=== PATIENT | female | born 1945 | race Caucasian/White ===

== ENCOUNTER 2019-08-31 08:52 | Outpatient (CLI) | payer MEDICARE, BC, SELFPAY ==
--- NOTE | ~2019-08-31 | US_ITS ---
EXAMINATION: US abdomen complete DATE: 08/31/2019 10:06 INDICATION: Elevated liver enzymes TECHNIQUE: Multiple grayscale and Doppler ultrasound images of the abdomen were obtained. COMPARISON: 09/17/2017 FINDINGS: Bowel gas obscures visualization of the pancreas. The liver is normal with normal echogenic ity and echotexture. No surface nodularity. Normal hepatopetal flow in the main portal vein. The gall bladder is surgically absent. The normal common bile duct measures 6 mm. There was no sonographic Mur phy sign. The visualized portions of the aorta and inferior vena cava are normal. The right kidney measures 9.2 x 4.4 x 4.5 cm. The left kidney measures 11.1 x 3.4 x 5.3 cm. The kidne ys demonstrate normal parenchymal echogenicity. There is no hydronephrosis. The spleen is normal in a ppearance and measures 10.5 cm. IMPRESSION: 1. No sonographic correlate for the patient's symptoms. Reviewed, dictated and finalized at location A.
== END 2019-08-31 08:53 | disposition home or self-care (01) ==
LOC: ANHIMG 08:59
PROVIDERS: PCP Internal Medicine; Visit Provider Internal Medicine
DX: R74.8 Abnormal levels of other serum enzymes (principal)
CPT/HCPCS: 76700

== ENCOUNTER 2020-02-22 11:58 | Outpatient (CLI) | payer MEDICARE, BC, SELFPAY ==
--- NOTE | ~2020-02-22 | NM_ITS ---
EXAMINATION: NM parathyroid imaging w spect DATE: 02/23/2020 07:54 INDICATION: Endocrine disorder, unspecified elevated calcium. TECHNIQUE: 19.063 mCi Tc99m sestamibi was administered intravenously. Anterior images of the neck wer e obtained immediately and at 2 hours. SPECT images of the neck were obtained. COMPARISON: None. FINDINGS: There is no focus of persistent activity in the area of the thyroid or mediastinum to sugge st parathyroid adenoma. IMPRESSION: 1. No evidence of a parathyroid adenoma. Reviewed, dictated and finalized at location A. [employer] POWER UNIT TENDER
== END 2020-02-22 11:59 | disposition home or self-care (01) ==
PROVIDERS: PCP Internal Medicine; Visit Provider Internal Medicine
DX: E34.9 Endocrine disorder, unspecified (principal)
CPT/HCPCS: 78071; A9500

== ENCOUNTER 2020-03-13 13:30 | Outpatient (CLI) | payer MEDICARE, BC, SELFPAY ==
--- NOTE | ~2020-03-13 | US_ITS ---
EXAMINATION: US thyroid EXAM DATE: 03/13/2020 13:59 INDICATION: E34.9 - Endocrine disorder, unspecified. Elevated parathyroid hormone and calcium. TECHNIQUE: Multiple grayscale and Doppler images of the thyroid were obtained (by a technologist who performed the scan) and subsequently reviewed. Individual nodules and recommendations may be reporte d in accordance with TI-RADS system as designated by the 2017 ACR White Paper TI-RADS committee. Comp maryson is made to prior examination from 08/20/2016. FINDINGS: The right thyroid lobe measures 4.9 x 1.7 x 1.3 cm, mildly enlarged. The left thyroid lobe measures 4 .9 x 1.4 x 1.8 cm, mildly enlarged. There are scattered thyroid nodules. There is a hypervascular nodule in the right thyroid lobe measuring 6 x 7 x 5 mm, solid (2 points), h ypoechoic (2 points), wider than tall, smooth margin, without echogenic foci, category TR4 for this n odule. Scattered other smaller thyroid nodules bilaterally. IMPRESSION: 1. Multinodular goiter. Optional one-year follow-up thyroid ultrasound. 2. Best candidate for possible parathyroid adenoma in the lateral midpole of the right thyroid lobe. Reviewed, dictated and finalized at location A. RAMMING SPECIALIST IMPRESSION: 1. Multinodular goiter. Optional one-year follow-up thyroid ultrasound. 2. Best candidate for possible parathyroid adenoma in the lateral midpole of t he right thyroid lobe.
== END 2020-03-13 13:31 | disposition home or self-care (01) ==
PROVIDERS: PCP Internal Medicine; Visit Provider Internal Medicine
DX: E34.9 Endocrine disorder, unspecified (principal); E04.2 Nontoxic multinodular goiter
CPT/HCPCS: 76536

== ENCOUNTER 2020-08-01 10:20 | Outpatient (CLI) | payer MEDICARE, BC, SELFPAY ==
[2020-08-01 11:03] LABS: INR 0.9; Prothrombin Time 12.9 Seconds (11.1-14.7)
== END 2020-08-01 10:21 | disposition home or self-care (01) ==
PROVIDERS: Anesthesiology; PCP Internal Medicine; Visit Provider Otolaryngology
DX: N28.9 Disorder of kidney and ureter, unspecified (principal); Z01.818 Encounter for other preprocedural examination
CPT/HCPCS: 36415; 85610; 85730

== ENCOUNTER → 2020-08-04 03:59 | Outpatient (CLI) | payer MEDICARE, BC, SELFPAY ==
[2020-08-04 19:46] LABS: SARS-CoV-2 RNA PCR Negative
== END ==
PROVIDERS: PCP Internal Medicine; Visit Provider Otolaryngology
DX: Z01.812 Encounter for preprocedural laboratory examination (principal); Z20.822 Contact with and (suspected) exposure to COVID-19
CPT/HCPCS: C9803; U0003; U0005

== ENCOUNTER 2020-08-07 01:49 | Day surgery (SDC) | payer MEDICARE, BC, SELFPAY ==
[2020-07-26 10:01] VITALS: BMI 28.3
--- NOTE | 2020-08-02 13:51 | PM.HPGS ---
History of Present Illness History of Present Illness Consent: Risks, benefits, and alternatives have been discussed and questions answered. Patient agrees to proceed with procedure. 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 Colon cancer screening DM type 2 (diabetes mellitus, type 2) Elevated homocysteine Elevated liver function tests Elevated parathyroid hormone Encounter for Medicare annual wellness exam Encounter for routine adult health examination with abnormal findings GERD (gastroesophageal reflux disease) Hypercalcemia Hyperlipidemia 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 Parathyroid adenoma Skin tag Vitamin D deficiency Family History Family History Father Hypertension Family history of heart disease in male family member before age 55 Cerebrovascular accident Mother Hypertension Family history of malignant neoplasm of breast in first degree relative Cerebrovascular accident Sibling Hypertension Family history of gastrointestinal disorder Other Family history of cardiovascular disease Social History Social History Smoking status: Never smoker Second hand tobacco smoke exposure: No Alcohol intake: never Substance use: never Substance use type: does not use Spiritual care concerns: No Meds Home Medications and Allergies Home Medications Medication Instructions Recorded Confirmed Type coenzyme Q10 100 mg capsule 400 mg PO DAILY 01/27/19 07/26/20 History magnesium 250 mg tablet 500 mg PO DAILY 01/27/19 07/26/20 History mecobalamin (vitamin B12) 1,000 1,000 mcg SUBLINGUAL DAILY 01/27/19 07/26/20 History mcg disintegrating tablet,sublingual omega-3 fatty acids 1,000 mg 2,000 mg PO BID cap 02/18/19 07/26/20 History capsule folic acid 1 mg tablet 1 mg PO DAILY #90 tablet 11/09/19 07/26/20 Rx cholecalciferol (vitamin D3) 25 25 mcg PO DAILY 02/01/20 07/26/20 History mcg (1,000 unit) tablet sitagliptin 100 mg tablet See Rx Instructions .ROUTE 04/02/20 07/26/20 Rx .COMPLEX #90 tablet indapamide 1.25 mg tablet See Rx Instructions .ROUTE 05/09/20 07/26/20 Rx .COMPLEX #90 tablet verapamil 180 mg tablet,extended See Rx Instructions .ROUTE 05/09/20 07/26/20 Rx release .COMPLEX #90 tablet famotidine 40 mg tablet See Rx Instructions .ROUTE 05/22/20 07/26/20 Rx .COMPLEX #90 tablet rosuvastatin 20 mg tablet See Rx Instructions .ROUTE 05/22/20 07/26/20 Rx .COMPLEX #90 tablet Allergies Allergy/AdvReac Type Severity Reaction Status Date / Time HERB Inhibitors Allergy Unknown Cough, Verified 07/26/20 09:55 RETAIN K+ hydralazine Allergy Unknown RASH, Verified 07/26/20 09:55 HANDS/FEET SWELLING Penicillins Allergy Unknown Unknown-POSSIBLE Verified 07/26/20 09:55 RASH Exam Narrative: Exam Narrative: chest clear of membranes themselves straight negative neck negative Assessment and Plan Additional Plan neck exploration parathyroidectomy
[2020-08-07] VITALS (8 sets, daily range): BP systolic 97–136; BP diastolic 53–65; PULSE 66–78; RESP 15–20; TEMP 36–36.4; O2SAT 95–100
--- NOTE | ~2020-08-07 | NM_ITS ---
EXAMINATION: NM parathyroid injection only DATE: 08/07/2020 07:58 INDICATION: Primary hyperparathyroidism. Preoperative assessment TECHNIQUE/FINDINGS/IMPRESSION: 5.0 mCi Tc99m sestamibi was administered by intravenous route for loca lization for subsequent surgery. No images were recorded. See surgical note for further detail. Reviewed, dictated and finalized at location A.
--- NOTE | 2020-08-07 05:44 | WPDHPUPDATE1 ---
History and Physical Update Update Date/Time: 08/07/20 05:44 History and Physical has been reviewed, including an updated exam of the patient. There are NO changes in the patient's condition. Risks, benefits, and alternatives have been discussed and questions answered. Patient agrees to proceed with procedure.
[2020-08-07] MEDS: ACETAMINOPHEN 500 MG TABLET 1000 MG PO (07:32)
[2020-08-07] MEDS: LACTATED RINGERS 1,000 ML 30 ML IV CONT ×2 (07:34→10:00)
[2020-08-07 08:16] LABS: Glucose Point of Care 112 mg/dl (65-105)
--- NOTE | 2020-08-07 08:18 | WPDANESEPP ---
Anes - Eval Pre Procedure Procedure: Operation Date: 08/07/20 09:30 Proposed Procedures p Parathyroid Exploration - Goran Castillo MD Date/Time: 08/07/20 08:18 Pre Op Diagnosis: hypercalcemia Patient Data Age: 74 Gender: F Height: 1.68 m Weight: 76.6 kg Last Vital Signs Temp 36.4 C L 08/07/20 07:30 Pulse 78 08/07/20 07:30 Resp 18 08/07/20 07:30 BP 136/65 08/07/20 07:30 Pulse Ox 98 08/07/20 07:30 Allergies Allergy/AdvReac Type Severity Reaction Status Date / Time HERB Inhibitors Allergy Unknown Cough, Verified 08/07/20 07:58 RETAIN K+ hydralazine Allergy Unknown RASH, Verified 08/07/20 07:58 HANDS/FEET SWELLING Penicillins Allergy Unknown Unknown-POSSIBLE Verified 08/07/20 07:58 RASH Home Medications Medication Instructions Recorded Confirmed Type coenzyme Q10 100 mg capsule 400 mg PO DAILY 01/27/19 08/07/20 History magnesium 250 mg tablet 500 mg PO DAILY 01/27/19 08/07/20 History mecobalamin (vitamin B12) 1,000 1,000 mcg SUBLINGUAL DAILY 01/27/19 08/07/20 History mcg disintegrating tablet,sublingual omega-3 fatty acids 1,000 mg 2,000 mg PO BID cap 02/18/19 08/07/20 History capsule folic acid 1 mg tablet 1 mg PO DAILY #90 tablet 11/09/19 08/07/20 Rx cholecalciferol (vitamin D3) 25 25 mcg PO DAILY 02/01/20 08/07/20 History mcg (1,000 unit) tablet sitagliptin 100 mg tablet See Rx Instructions .ROUTE 04/02/20 08/07/20 Rx .COMPLEX #90 tablet indapamide 1.25 mg tablet See Rx Instructions .ROUTE 05/09/20 08/07/20 Rx .COMPLEX #90 tablet verapamil 180 mg tablet,extended See Rx Instructions .ROUTE 05/09/20 08/07/20 Rx release .COMPLEX #90 tablet famotidine 40 mg tablet See Rx Instructions .ROUTE 05/22/20 08/07/20 Rx .COMPLEX #90 tablet rosuvastatin 20 mg tablet See Rx Instructions .ROUTE 03/16/21 06/01/21 Rx .COMPLEX #90 tablet Laboratory Tests 08/07/20 08:13 POC Capillary Glucose 112 mg/dl H mg/dl (65-105) Patient hx anesthesia problems: none Family hx anesthesia problems: none PMFSH Past Medical History Medical History Abnormal finding of blood chemistry HERB inhibitor intolerance Benign essential hypertension Bilateral cataracts BMI 28.0-28.9,adult BMI 29.0-29.9,adult 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 Colon cancer screening DM type 2 (diabetes mellitus, type 2) Elevated homocysteine Elevated liver function tests Elevated parathyroid hormone Encounter for Medicare annual wellness exam Encounter for routine adult health examination with abnormal findings GERD (gastroesophageal reflux disease) Hypercalcemia Hyperlipidemia On care home drug therapy Parathyroid adenoma Skin tag Vitamin D deficiency Family History Family History Father Hypertension Family history of heart disease in male family member before age 55 Cerebrovascular accident Mother Hypertension Family history of malignant neoplasm of breast in first degree relative Cerebrovascular accident Sibling Hypertension Family history of gastrointestinal disorder Other Family history of cardiovascular disease Social History Social History Smoking status: Never smoker Second hand tobacco smoke exposure: No Alcohol intake: never Substance use: never Substance use type: does not use Living arrangements: with family Spiritual care concerns: No Exam Day of Procedure 08/07/20 08:18 Patient weight: overweight Heart: regular rate and rhythm Lungs: normal air movement Airway: Mallampati scale class 1 Neurological: alert and oriented
--- NOTE | 2020-08-07 08:25 | WPDANESEFPP ---
Anes - Eval Final PreProcedure Day of Procedure 08/07/20 08:25 Patient weight: overweight Heart: regular rate and rhythm Lungs: clear to auscultation Airway: Mallampati scale class II Neurological: alert and oriented Last oral intake: >/= 8 hours ASA classification: III Emergent: no Anesthetic plan: proceed Anesthesia type and monitoring: general ETT and standard monitoring Informed Consent: The patient's anesthetic plan and its attendant risks and benefits were discussed with the patient/family/POA. Questions were solicited and answers provided to the satisfaction of the patient/family/POA.
[2020-08-07] MEDS: ceFAZolin 2 GM/D5W 50 ML 2 GM/50 ML BAG IVPB (08:38)
[2020-08-07] MEDS: LIDO 1%/EPINEPHRINE 1:100,000 50 ML VIAL 20 ML INFILTRATE (09:01)
--- NOTE | 2020-08-07 09:43 | PM.PROC ---
Procedure Note - Detailed Date of procedure: 08/07/20 Pre-op diagnosis: hypercalcemia Post-op diagnosis: same Procedure performed: Parathyroid exploration Description of procedure: Patient was prepped and draped vaginal for internal esthesia small incision low collar incision was made injected xylocaine with adrenaline sub platysmal flaps were elevated the thyroid was identified midline trachea was identified on the right thyroid lobe with mild amount of the section an 8 cm parathyroid was identified in the mid lateral portion frozen section confirmed incision was then closed after obtaining hemostasis layers of chromic and subcuticular Monocryl with glue Anesthesia: GLMA Surgeon: Goran Castillo MD Estimated blood loss (mL): 5 Drains: No Packing: No Pathology: yes Complications: No immediate complications Condition: stable Disposition: PACU Findings: Parathyroid adenoma left lower lobe
[2020-08-08 07:23] LABS: Glucose Point of Care 159 mg/dl (65-105)
== END 2020-08-07 11:45 | disposition home or self-care (01) ==
PROVIDERS: PCP Internal Medicine; Visit Provider Otolaryngology
PROC: (CPT 60500; principal; 2020-08-07 09:30)
DX: D35.1 Benign neoplasm of parathyroid gland (principal); E83.52 Hypercalcemia; I12.9 Hypertensive chronic kidney disease with stage 1 through stage 4 chronic kidney disease, or unspecified chronic kidney disease; E11.22 Type 2 diabetes mellitus with diabetic chronic kidney disease; N18.1 Chronic kidney disease, stage 1; K21.9 Gastro-esophageal reflux disease without esophagitis; E78.5 Hyperlipidemia, unspecified; Z79.84 Long term (current) use of oral hypoglycemic drugs
CPT/HCPCS: 60500; 78808; 82948; 88305; 88331; A9270; A9500; J0330; J0690; J1100; J2370; J2405; J2704; J3010; J7120

== ENCOUNTER 2020-10-11 01:46 | Day surgery (SDC) | payer MEDICARE, BC, SELFPAY ==
[2020-09-28 14:28] VITALS: BMI 27.7
[2020-10-11 08:55] VITALS: BP 133/70; PULSE 92; RESP 16; TEMP 35.7; O2SAT 99; BMI 26.9
[2020-10-11] MEDS: LACTATED RINGERS 1,000 ML 150 ML IV CONT (09:02)
[2020-10-11 09:18] LABS: Glucose Point of Care 118 mg/dl (65-105)
--- NOTE | 2020-10-11 09:23 | WPDANESEPPF ---
Anes - Initial Pre Proc Eval Procedure: Operation Date: 10/11/20 10:00 Proposed Procedures p Screening Colonoscopy - Bryce Shi MD Date/Time: 10/11/20 09:23 Surgeon: Bryce Shi MD Pre Op Diagnosis: neoplasm screening Patient Data Age: 74 Gender: F Height: 1.68 m Weight: 75.6 kg Last Vital Signs Temp 35.7 C L 10/11/20 08:55 Pulse 92 10/11/20 08:55 Resp 16 10/11/20 08:55 BP 133/70 10/11/20 08:55 Pulse Ox 99 10/11/20 08:55 Allergies Allergy/AdvReac Type Severity Reaction Status Date / Time HERB Inhibitors Allergy Unknown Cough, Verified 10/11/20 08:52 RETAIN K+ hydralazine Allergy Unknown RASH, Verified 10/11/20 08:52 HANDS/FEET SWELLING Penicillins Allergy Unknown Unknown-POSSIBLE Verified 10/11/20 08:52 RASH Home Medications Medication Instructions Recorded Confirmed Type coenzyme Q10 100 mg capsule 400 mg PO DAILY 01/27/19 10/11/20 History magnesium 250 mg tablet 500 mg PO DAILY 01/27/19 10/11/20 History mecobalamin (vitamin B12) 1,000 1,000 mcg SUBLINGUAL DAILY 01/27/19 10/11/20 History mcg disintegrating tablet,sublingual omega-3 fatty acids 1,000 mg 2,000 mg PO BID cap 02/18/19 10/11/20 History capsule cholecalciferol (vitamin D3) 25 25 mcg PO DAILY 02/01/20 10/11/20 History mcg (1,000 unit) tablet sitagliptin 100 mg tablet See Rx Instructions .ROUTE 04/02/20 10/11/20 Rx .COMPLEX #90 tablet indapamide 1.25 mg tablet See Rx Instructions .ROUTE 05/09/20 10/11/20 Rx .COMPLEX #90 tablet verapamil 180 mg tablet,extended See Rx Instructions .ROUTE 05/09/20 10/11/20 Rx release .COMPLEX #90 tablet famotidine 40 mg tablet See Rx Instructions .ROUTE 05/22/20 10/11/20 Rx .COMPLEX #90 tablet rosuvastatin 20 mg tablet See Rx Instructions .ROUTE 05/22/20 10/11/20 Rx .COMPLEX #90 tablet folic acid 1 mg tablet See Rx Instructions .ROUTE 08/16/20 10/11/20 Rx .COMPLEX #90 tablet Laboratory Tests 10/11/20 09:15 POC Capillary Glucose 118 mg/dl H mg/dl (65-105) Patient hx anesthesia problems: none Family hx anesthesia problems: none PMFSH Past Medical History Medical History Abnormal finding of blood chemistry HERB inhibitor intolerance Benign essential hypertension Bilateral cataracts BMI 27.0-27.9,adult BMI 28.0-28.9,adult BMI 29.0-29.9,adult Breast cancer screening 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 Colon cancer screening DM type 2 (diabetes mellitus, type 2) Elevated homocysteine Elevated liver function tests Elevated parathyroid hormone Encounter for Medicare annual wellness exam Encounter for routine adult health examination with abnormal findings Encounter for routine adult health examination without abnormal findings GERD (gastroesophageal reflux disease) Hypercalcemia Hyperlipidemia 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 Parathyroid adenoma Skin tag Vitamin D deficiency Surgical History Surgical History S/P parathyroidectomy Family History Family History Father Hypertension Family history of heart disease in male family member before age 55 Cerebrovascular accident Mother Hypertension Family history of malignant neoplasm of breast in first degree relative Cerebrovascular accident Sibling Hypertension Family history of gastrointestinal disorder Other Family history of cardiovascular disease Social History Social History Smoking status: Never smoker Second hand tobacco smoke exposure: No Alcohol intake: never Substance use: never Substance use type: does not use Living arrangements: with family Spiritual care concerns: No Anes - Eval Final PreProcedure Day of Procedure 10/11/20 09:23 Patient weight: overweight Heart: regular rate and rhythm
--- NOTE | 2020-10-11 09:41 | PM.HPGS ---
History of Present Illness History of Present Illness Consent: Risks, benefits, and alternatives have been discussed and questions answered. Patient agrees to proceed with procedure. 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 Colon cancer screening DM type 2 (diabetes mellitus, type 2) Elevated homocysteine Elevated liver function tests Elevated parathyroid hormone Encounter for Medicare annual wellness exam Encounter for routine adult health examination with abnormal findings Encounter for routine adult health examination without abnormal findings GERD (gastroesophageal reflux disease) Hypercalcemia Hyperlipidemia 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 Parathyroid adenoma Skin tag Vitamin D deficiency Surgical History Surgical History S/P parathyroidectomy Family History Family History Father Hypertension Family history of heart disease in male family member before age 55 Cerebrovascular accident Mother Hypertension Family history of malignant neoplasm of breast in first degree relative Cerebrovascular accident Sibling Hypertension Family history of gastrointestinal disorder Other Family history of cardiovascular disease Social History Social History Smoking status: Never smoker Second hand tobacco smoke exposure: No Alcohol intake: never Substance use: never Substance use type: does not use Living arrangements: with family Spiritual care concerns: No Meds Home Medications and Allergies Home Medications Medication Instructions Recorded Confirmed Type coenzyme Q10 100 mg capsule 400 mg PO DAILY 01/27/19 10/11/20 History magnesium 250 mg tablet 500 mg PO DAILY 01/27/19 10/11/20 History mecobalamin (vitamin B12) 1,000 1,000 mcg SUBLINGUAL DAILY 01/27/19 10/11/20 History mcg disintegrating tablet,sublingual omega-3 fatty acids 1,000 mg 2,000 mg PO BID cap 02/18/19 10/11/20 History capsule cholecalciferol (vitamin D3) 25 25 mcg PO DAILY 02/01/20 10/11/20 History mcg (1,000 unit) tablet sitagliptin 100 mg tablet See Rx Instructions .ROUTE 04/02/20 10/11/20 Rx .COMPLEX #90 tablet indapamide 1.25 mg tablet See Rx Instructions .ROUTE 05/09/20 10/11/20 Rx .COMPLEX #90 tablet verapamil 180 mg tablet,extended See Rx Instructions .ROUTE 05/09/20 10/11/20 Rx release .COMPLEX #90 tablet famotidine 40 mg tablet See Rx Instructions .ROUTE 05/22/20 10/11/20 Rx .COMPLEX #90 tablet rosuvastatin 20 mg tablet See Rx Instructions .ROUTE 05/22/20 10/11/20 Rx .COMPLEX #90 tablet folic acid 1 mg tablet See Rx Instructions .ROUTE 08/16/20 10/11/20 Rx .COMPLEX #90 tablet Allergies Allergy/AdvReac Type Severity Reaction Status Date / Time HERB Inhibitors Allergy Unknown Cough, Verified 10/11/20 08:52 RETAIN K+ hydralazine Allergy Unknown RASH, Verified 10/11/20 08:52 HANDS/FEET SWELLING Penicillins Allergy Unknown Unknown-POSSIBLE Verified 10/11/20 08:52 RASH Vital Signs Vital Signs - 24 hr 10/11/20 08:55 Temperature 35.7 C L Pulse Rate 92 Respiratory Rate 16 Blood Pressure 133/70 Pulse Oximetry 99 Exam Resp: Auscultation: clear to auscultation bilaterally Cardio: Rate: regular rate Rhythm: regular rhythm GI: GI Palp: Yes Soft to palpatio
[2020-10-11 10:37] VITALS: BP 100/46; PULSE 68; RESP 18; O2SAT 97
[2020-10-11 10:47] VITALS: BP 100/47; PULSE 65; RESP 14; O2SAT 99
[2020-10-11 10:57] VITALS: BP 116/64; PULSE 67; RESP 20; O2SAT 99
== END 2020-10-11 11:12 | disposition home or self-care (01) ==
PROVIDERS: PCP Internal Medicine; Visit Provider Internal Medicine Gastroenterology
PROC: 0DJD8ZZ Inspection of Lower Intestinal Tract, Via Natural or Artificial Opening Endoscopic (ICD-10-PCS; CPT 45378; principal; 2020-10-11 10:00)
DX: Z12.11 Encounter for screening for malignant neoplasm of colon (principal); K57.30 Diverticulosis of large intestine without perforation or abscess without bleeding; K64.8 Other hemorrhoids; E11.22 Type 2 diabetes mellitus with diabetic chronic kidney disease; N18.1 Chronic kidney disease, stage 1; E55.9 Vitamin D deficiency, unspecified; K21.9 Gastro-esophageal reflux disease without esophagitis; E78.5 Hyperlipidemia, unspecified; D35.1 Benign neoplasm of parathyroid gland
CPT/HCPCS: G0121; 82948; J2704; J7120

== ENCOUNTER → 2021-01-17 15:53 | Outpatient (CLI) | payer MEDICARE, BC, SELFPAY ==
--- NOTE | ~2021-01-17 | MM_ITS ---
EXAMINATION: MM screening [facility] BI w honey HISTORY: Screening mammogram TECHNIQUE: Craniocaudal and mediolateral oblique 3-D tomosynthesis images were obtained and synthetic 2-D images were generated. CAD analysis was submitted and interpreted. COMPARISON: 10/29/2018, 09/17/2017, 07/09/2016 bilateral screening mammogram examinations BREAST PARENCHYMAL COMPOSITION: There are scattered areas of fibroglandular density. FINDINGS: There is a 5 by 6 mm circumscribed opacity in the anterior aspect of the lower inner quadra nt of the right breast (MLO Tomosynthesis image 34/72; craniocaudal Tomosynthesis image 25/72); sonog raphic correlation is recommended. 6 mm circumscribed mass with punctate calcification in the central left breast 4.6 cm deep to the nip ple (MLO Tomosynthesis image 36/76. These are both relatively stable since since 10/29/2018. There is no evidence of suspicious mass, calcification, or architectural distortion to suggest malign ander in either breast. There has been no suspicious interval change. IMPRESSION: 1. No mammographic evidence of malignancy. 2. Recommend routine screening mammography in one year. BI-RADS Category 2: Benign finding(s). Reviewed, dictated and finalized at location A. GEMENT EXECUTIVE
== END ==
PROVIDERS: PCP Internal Medicine; Visit Provider Internal Medicine
DX: Z12.31 Encounter for screening mammogram for malignant neoplasm of breast (principal)
CPT/HCPCS: 77063; 77067

== ENCOUNTER → 2021-03-18 15:49 | Outpatient (REF) | payer MEDICARE, BC, SELFPAY | LOC: ANHLAB 15:49 | PROVIDERS: PCP Internal Medicine; Visit Provider Nurse Practitioner | DX: L72.0 Epidermal cyst (principal) | CPT/HCPCS: 88304 ==

== ENCOUNTER 2022-02-13 08:11 | Outpatient (CLI) | payer MEDICARE, BC, SELFPAY ==
--- NOTE | ~2022-02-13 | CT_ITS ---
EXAMINATION: CT abdomen pelvis w con DATE: 02/13/2022 09:07 INDICATION: Right lower quadrant abdominal pain, rebound tenderness TECHNIQUE: Computed tomography (CT) of the abdomen and pelvis was performed with 100 CC Omnipaque 350 intravenous contrast. Automated exposure control and iterative reconstruction technique were employe d. Exam dose: 521.82 mGy-cm total exam DLP. COMPARISON: 08/27/2019 complete abdominal ultrasound examination FINDINGS: There is mild discoid atelectasis or scarring at the base of the left lower. Small sliding hiatal hernia. Status post cholecystectomy. No hepatic space-occupying mass lesion or bile duct dilatation. No pancr eatic mass lesion, calcification or ductal dilatation. There is splenomegaly, the spleen measuring up to approximately 14 cm vertical height. Normal morphology of the adrenal glands. Scattered bilateral renal cysts, the largest on the left, measuring up to 12 mm. No urinary tract mhai culus or hydroureteronephrosis. There is atherosclerotic calcification of the abdominal aorta but no abdominal aortic aneurysm. No in traperitoneal or retroperitoneal or pelvic mass lesion or adenopathy or ascites is detected. Diverticulosis of the sigmoid colon; no CT evidence of diverticulitis. No bowel obstruction or intrap eritoneal free air is detected. There is nonspecific mild fat stranding and fascial thickening in the right lower quadrant. There is up to 10.7 mm diameter possible blind ending tubular structure, possibly a dilated appendix with surr ounding inflammation. Clinical correlation is advised. Small fat-containing umbilical hernia and small periumbilical fat-containing hernia. Prominent degenerative change at the apophyseal joints of the lumbar and lumbosacral area with associ ated minimal grade 1 anterolisthesis at L4-5. Moderately severe degenerative disc disease at L4-5. No suspicious osteolytic or osteoblastic lesions are noted. IMPRESSION: Suspected acute appendicitis with mild surrounding inflammatory changes, no evidence of abscess or free air/perforation; clinical correlation is advised Diverticulosis of sigmoid colon; no CT evidence of diverticulitis Status post cholecystectomy Small sliding hiatal hernia Bilateral renal cysts Reviewed, dictated and finalized at [facility]. Reviewed, dictated and finalized at [facility]. [facility] IMPRESSION: Suspected acute appendicitis with mild surrounding inflammatory ch anges, no evidence of abscess or free air/perforation; clinical correlation is advised Diverticulosis of sigmoid colon; no CT evidence of diverticulitis Status post cholecystectomy Small sliding hiatal hernia Bilateral renal cysts
[2022-02-13 08:58] LABS: Estimated Glomerular Filt Rate 48
[2022-02-13 10:03] LABS: Basophils Absolute Auto 0.1 K/mm3 (0.0-0.1); Basophils Percent Auto 0.7 % (0.2-1.2); Eosinophils Absolute Auto 0.4 K/mm3 (0-0.3); Eosinophils Percent Auto 5.1 % (0-4.4); Hematocrit 34.9 % (37.0-47.0); Hemoglobin 11.6 g/dL (12.0-15.0); Immature Granulocyte Absolute 0.04 K/mm3 (0.00-0.031); Immature Granulocyte Percent A 0.6 % (0-0.5); Lymphocytes Absolute Auto 2.51 K/mm3 (0.9-3.2); Lymphocytes Percent Auto 35.4 % (18.3-44.2); Mean Corpuscular HGB Conc 33.2 g/dl (32-36); Mean Corpuscular Hemoglobin 32.6 pg (26-34); Mean Platelet Volume 9.9 fl (7.4-10.4); Monocytes Absolute Auto 0.6 K/mm3 (0.1-0.6); Neutrophils Absolute Auto 3.6 K/mm3 (1.3-6.7); Neutrophils Percent Auto 50.2 % (45.5-73.1); Platelet Count Result 160 k/mm3 (150-375); Red Blood Count 3.56 M/mm3 (4.2-5.4); Red Cell Distribution Width 12.7 % (11.5-14.5); White Blood Count 7.1 K/mm3 (4.5-10.0)
== END 2022-02-13 08:12 | disposition home or self-care (01) ==
PROVIDERS: PCP Internal Medicine; Visit Provider Internal Medicine
DX: R10.31 Right lower quadrant pain (principal); K57.30 Diverticulosis of large intestine without perforation or abscess without bleeding; K44.9 Diaphragmatic hernia without obstruction or gangrene; N28.1 Cyst of kidney, acquired; Z90.49 Acquired absence of other specified parts of digestive tract
CPT/HCPCS: 74177; 85025; Q9967

== ENCOUNTER 2022-02-13 10:18 | Day surgery (SDC) | payer MEDICARE, BC, SELFPAY ==
[2022-02-13] VITALS (10 sets, daily range): BP systolic 101–168; BP diastolic 43–78; PULSE 74–90; RESP 14–19; TEMP 36.5–36.8; O2SAT 97–100
--- NOTE | 2022-02-13 10:42 | ED.ABDPAIN ---
HPI - Abdominal Pain General Chief Complaint: Abdominal Pain Stated Complaint: ACUTE APPENDICITIS Time Seen by Provider: 02/13/22 10:29 History of Present Illness HPI narrative: 76-year-old female history of hypertension, diabetes and hyperlipidemia presents to the emergency room from her PCPs office for evaluation of right lower quadrant pain. Patient states that she has been experiencing pain for 5 days, and its been associated with constipation and subjective low-grade fever. States that she took laxative on Thursday's had multiple episodes of diarrhea since. PCP jud blood work this morning and ordered a CT scan. Outpatient CT scan this morning showed possible uncomplicated acute appendicitis. Related Data Home Medications Medication Instructions Recorded Confirmed coenzyme Q10 100 mg capsule 400 mg PO DAILY 01/27/19 02/13/22 (CoQ-10) magnesium 250 mg tablet 500 mg PO DAILY 01/27/19 02/13/22 mecobalamin (vitamin B12) 1,000 1,000 mcg sublingual DAILY 01/27/19 02/13/22 mcg disintegrating tablet,sublingual omega-3 fatty acids 1,000 mg 2,000 mg PO BID 02/18/19 02/13/22 capsule (Fish Oil Concentrate) cholecalciferol (vitamin D3) 25 25 mcg PO DAILY 02/01/20 02/13/22 mcg (1,000 unit) tablet fluticasone propionate 50 2 spray intranasal DAILY 12/16/21 02/13/22 mcg/actuation nasal spray,suspension Allergies Allergy/AdvReac Type Severity Reaction Status Date / Time HERB Inhibitors Allergy Unknown Cough, Verified 02/13/22 10:25 RETAIN K+ hydralazine Allergy Unknown RASH, Verified 02/13/22 10:25 HANDS/FEET SWELLING Penicillins Allergy Unknown Unknown-POSSIBLE Verified 02/13/22 10:25 RASH Review of Systems Review of Systems: CONSTITUTIONAL: Denies fever, chills, or sweats. EYES: Denies visual changes, redness, or discharge. ENT: Denies rhinorrhea, congestion, sore throat, or otalgia. CARDIOVASCULAR: Denies chest pain, palpitations, or edema. RESPIRATORY: Denies cough or dyspnea. GASTROINTESTINAL: Reports abdominal pain GENITOURINARY: Denies dysuria or hematuria. SKIN: Denies rash or itching. MUSCULOSKELETAL: Denies back pain, joint pain, or myalgia. NEUROLOGIC: Denies headache, numbness, dizziness, or weakness. PSYCHIATRIC: Denies anxiety or depression. 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 Colon cancer screening Diverticulosis DJD (degenerative joint disease), multiple sites DM type 2 (diabetes mellitus, type 2) Elevated homocysteine Elevated liver function tests Elevated parathyroid hormone Encounter for Medicare annual wellness exam Encounter for routine adult health examination with abnormal findings Encounter for routine adult health examination without abnormal findings GERD (gastroesophageal reflux disease) GERD (gastroesophageal reflux disease) Hypercalcemia Hyperlipidemia Incisional hernia without obstruction or gangrene Left knee pain Microalbuminuria due to type 2 diabetes mellitus On detention drug therapy Parathyroid adenoma Post-menopausal SK (seborrheic keratosis) Skin tag Thrombophlebitis of superficial veins of right lower extremity Varicose veins of both lower extremities Vitamin D deficiency Surgical History Surgical History H/O hernia repair 2012 H/O removal of cyst 2013 H/O: hysterectomy 1990 History of laparoscopic cholecystectomy S/P parathyroidectomy Family History Family History Father Hypertension Family history o
[2022-02-13] MEDS: ERTAPENEM 1 GM/NS 50 ML 1 GM/50 ML BAG IVPB (11:29)
[2022-02-13] MEDS: SODIUM CHLORIDE 0.9% IV 1,000 ML 500 ML IV CONT (11:29)
[2022-02-13 11:32] LABS: Basophils Absolute Auto 0.1 K/mm3 (0.0-0.1); Basophils Percent Auto 0.7 % (0.2-1.2); Eosinophils Absolute Auto 0.3 K/mm3 (0-0.3); Eosinophils Percent Auto 3.7 % (0-4.4); Hematocrit 37.1 % (37.0-47.0); Hemoglobin 12.2 g/dL (12.0-15.0); Immature Granulocyte Absolute 0.03 K/mm3 (0.00-0.031); Immature Granulocyte Percent A 0.4 % (0-0.5); Lymphocytes Absolute Auto 2.65 K/mm3 (0.9-3.2); Lymphocytes Percent Auto 39.2 % (18.3-44.2); Mean Corpuscular HGB Conc 32.9 g/dl (32-36); Mean Corpuscular Volume 100.3 fl (80-100); Mean Platelet Volume 9.9 fl (7.4-10.4); Monocytes Absolute Auto 0.5 K/mm3 (0.1-0.6); Monocytes Percent Auto 7.8 % (2.6-8.5); Neutrophils Absolute Auto 3.3 K/mm3 (1.3-6.7); Neutrophils Percent Auto 48.2 % (45.5-73.1); Platelet Count Result 147 k/mm3 (150-375); Red Cell Distribution Width 12.8 % (11.5-14.5); White Blood Count 6.8 K/mm3 (4.5-10.0)
[2022-02-13 11:40] LABS: Alanine Aminotransferase 30 U/L (6-35); Albumin Level 4.1 g/dL (3.5-5.1); Alkaline Phosphatase 91 U/L (38-126); Anion Gap 10 mmol/L (8-16); Aspartate Amino Transferase 41 U/L (14-36); Bilirubin,Total 1.1 mg/dL (0.2-1.3); Blood Urea Nitrogen 21 mg/dL (7-17); Carbon Dioxide 22 mmol/L (22-30); Chloride 106 mmol/L (98-107); Estimated CRCL calculation 44 ml/min; Estimated Glomerular Filt Rate 54; Glucose 110 mg/dL (65-110); Lipase 229 U/L (23-300); Potassium 3.7 mmol/L (3.4-5.0); Sodium 138 mmol/L (137-145)
[2022-02-13 11:41] LABS: INR 1.1; Prothrombin Time 13.3 Seconds (11.1-14.7)
[2022-02-13 11:42] LABS: Partial Thromboplastin Time 28.2 SECONDS (22.3-36.8)
[2022-02-13 12:05] LABS: Influenza A QL RT-PCR Negative (Negative); Influenza B QL RT-PCR Negative (Negative); SARS-CoV-2 RNA PCR Negative
--- NOTE | 2022-02-13 12:41 | PM.HPGS ---
History of Present Illness History of Present Illness Consent: Risks, benefits, and alternatives have been discussed and questions answered. Patient agrees to proceed with procedure. Chief complaint: ACUTE APPENDICITIS Narrative: Estefani Mchugh is a 76 year old female with history of hypertension, hyperlipidemia, and type 2 diabetes mellitus, who was directed to the ER by her primary care physician due to results of an outpatient CT scan. She reports right lower quadrant abdominal pain for the past 5 days. This has been a consistent pain that is aggravated by moving and bending. She felt that the pain had improved after the first 24 hours, but it remained persistant. Denies nausea or vomiting. She endorses chills and felt she was feverish. Initially, she thought her pain was related to constipation, therefore she took Dulcolax and had multiple liquid bowel movements. She has now not had a bowel movement in the last 2 days, but has been passing flatus. She called her PCP due to the right lower quadrant abdominal pain and was seen as an outpatient. She had a CT scan of the abdomen and pelvis and labs ordered. CT this morning showed suspected acute appendicitis with mild surrounding inflammatory changes without evidence of abscess or free air/perforation, as well as other incidental findings. She was then directed to the ER. Labs showed a normal white blood cell count. Our service has been called by the ED physician for surgical evaluation of acute appendicitis. She is now seen in the ER. Review of Systems Review of Systems: All systems reviewed & are unremarkable except as noted in HPI and below Constitutional: Constitutional: Reports no additional constitutional complaints, Reports chills, Denies fatigue, Denies fever(s) and Denies headache(s) Eyes: Eyes: Reports no additional eye complaints ENT: Reports system reviewed and no additional complaints, except as documented and Denies dizziness Cardiovascular: Cardiovascular: Reports no additional cardiovascular complaints, Denies chest pain and Denies leg edema Respiratory: Respiratory: Reports no additional respiratory complaints, Denies cough and Denies dyspnea Gastrointestinal: Gastrointestinal: Reports as per HPI, Reports no additional gastrointestinal complaints, Reports abdominal pain, Denies nausea and Denies vomiting Genitourinary: Genitourinary: Reports no additional female genitourinary complaints and Denies dysuria Musculoskeletal: Musculoskeletal: Reports no additional musculoskeletal complaints, Denies abnormal gait and Denies joint swelling Integumentary/Breasts: Skin/Breast: Reports system reviewed and no additional complaints, except as docu and Denies jaundice Neurologic: Reports system reviewed and no additional complaints, except as documented, Denies headache(s), Denies focal weakness, Denies numbness and Denies tingling PMFSH Past Medical History Medical History Allergy to HERB inhibitors Allergy to angiotensin receptor blockers (ARB) Benign essential hypertension Bilateral cataracts BMI 27.0-27.9,adult Chronic low back pain 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 Diverticulosis DJD (degenerative joint disease), multiple sites DM type 2 (diabetes mellitus, type 2) Elevated homocysteine Elevated liver function tests Elevated parathyroid hormone GERD (gastroesophageal reflux disease) Hypercalcemia Hyperlipidemia Incisional hernia without obstruction or gangrene Left knee pain Microalbuminuria due to type 2 diabetes mellitus Parathyroid adenoma Post-menopausal SK (seborrheic keratosis) Skin tag Thrombophlebitis of superficial veins of right lower extremity Varicose veins of both lower extremities Vitamin D deficiency Surgical History Surgical History H/O hernia repair 2012 -repair of epigastric incisional hernia with mesh H/O removal of
--- NOTE | 2022-02-13 13:47 | WPDHPUPDATE1 ---
History and Physical Update Update Date/Time: 02/13/22 13:47 History and Physical has been reviewed, including an updated exam of the patient. There are NO changes in the patient's condition. Risks, benefits, and alternatives have been discussed and questions answered. Patient agrees to proceed with procedure.
[2022-02-13 14:29] LABS: Glucose Point of Care 98 mg/dl (65-105)
--- NOTE | 2022-02-13 14:34 | WPDANESEPPF ---
Anes - Initial Pre Proc Eval Procedure: Operation Date: 02/13/22 15:30 Proposed Procedures p Laparoscopic Appendectomy; Possible Open - Christie Boyd MD Date/Time: 02/13/22 14:34 Surgeon: Christie Boyd MD Pre Op Diagnosis: ACUTE APPENDICITIS Patient Data Age: 76 Gender: F Height: 1.68 m Weight: 78 kg Last Vital Signs Temp 36.7 C 02/13/22 14:18 Pulse 83 02/13/22 14:18 Resp 16 02/13/22 14:18 BP 143/66 H 02/13/22 14:18 Pulse Ox 100 02/13/22 14:18 O2 Del Method Room Air 02/13/22 14:18 Allergies Allergy/AdvReac Type Severity Reaction Status Date / Time HERB Inhibitors Allergy Unknown Cough, Verified 02/13/22 13:51 RETAIN K+ hydralazine Allergy Unknown RASH, Verified 02/13/22 13:51 HANDS/FEET SWELLING Penicillins Allergy Unknown Unknown-POSSIBLE Verified 02/13/22 13:51 RASH Home Medications Medication Instructions Recorded Confirmed Type coenzyme Q10 100 mg capsule 400 mg PO DAILY 01/27/19 02/13/22 History (CoQ-10) magnesium 250 mg tablet 500 mg PO DAILY 01/27/19 02/13/22 History mecobalamin (vitamin B12) 1,000 1,000 mcg sublingual DAILY 01/27/19 02/13/22 History mcg disintegrating tablet,sublingual omega-3 fatty acids 1,000 mg 2,000 mg PO BID 02/18/19 02/13/22 History capsule (Fish Oil Concentrate) cholecalciferol (vitamin D3) 25 25 mcg PO DAILY 02/01/20 02/13/22 History mcg (1,000 unit) tablet verapamil 180 mg tablet,extended See Rx Instructions .Route 05/27/21 02/13/22 Rx release .COMPLEX #90 tabs famotidine 40 mg tablet See Rx Instructions .Route 06/10/21 02/13/22 Rx .COMPLEX #90 tabs rosuvastatin 20 mg tablet See Rx Instructions .Route 06/10/21 02/13/22 Rx .COMPLEX #90 tabs metronidazole 1 % topical gel 1 applic topical TID #60 grams 07/29/21 02/13/22 Rx (Metrogel) folic acid 1 mg tablet See Rx Instructions .Route 12/09/21 02/13/22 Rx .COMPLEX #90 tabs fluticasone propionate 50 2 spray intranasal DAILY 12/16/21 02/13/22 History mcg/actuation nasal spray,suspension sitagliptin phosphate 100 mg See Rx Instructions .Route 01/28/22 02/13/22 Rx tablet (Januvia) .COMPLEX #90 tabs Laboratory Tests 02/13/22 02/13/22 02/13/22 11:20 11:20 11:20 WBC 6.8 K/mm3 K/mm3 (4.5-10.0) RBC 3.70 M/mm3 L M/mm3 (4.2-5.4) Hgb 12.2 g/dL g/dL (12.0-15.0) Hct 37.1 % % (37.0-47.0) MCV 100.3 fl H fl (80-100) MCH 33.0 pg pg (26-34) MCHC 32.9 g/dl g/dl (32-36) RDW 12.8 % % (11.5-14.5) Plt Count 147 k/mm3 L k/mm3 (150-375) MPV 9.9 fl fl (7.4-10.4) Immature Gran % (Auto) 0.4 % % (0-0.5) Neut % (Auto) 48.2 % % (45.5-73.1) Lymph % (Auto) 39.2 % % (18.3-44.2) [place] % (Auto) 7.8 % % (2.6-8.5) Eos % (Auto) 3.7 % % (0-4.4) Baso % (Auto) 0.7 % % (0.2-1.2) Lymph # (Auto) 2.65 K/mm3 K/mm3 (0.9-3.2) [place] # (Auto) 0.5 K/mm3 K/mm3 (0.1-0.6) Eos # (Auto) 0.3 K/mm3 K/mm3 (0-0.3) Baso # (Auto) 0.1 K/mm3 K/mm3 (0.0-0.1) Abs Immat Gran (auto) 0.03 K/mm3 K/mm3 (0.00-0.031) Absolute Neuts (auto) 3.3 K/mm3 K/mm3 (1.3-6.7) Absolute Nucleated RBC 0.0 K/mm3 K/mm3 (0.0-0.012) Nucleated RBC % 0.0 % % (0.0-0.2) PT INR APTT Sodium 138 mmol/L mmol/L (137-145) Potassium 3.7 mmol/L mmol/L (3.4-5.0) Chloride 106 mmol/L mmol/L (98-107) Carbon Dioxide 22 mmol/L mmol/L (22-30) Anion Gap 10 mmol/L mmol/L (8-16) BUN 21 mg/dL H mg/dL (7-17) Creatinine 1.00 mg/dL mg/dL (0.7-1.0) Estim Creat Clear Calc 44 ml/min ml/min Estimated GFR 54 L (59 - ) Glucose 110 mg/dL mg/dL (65-110) POC Capillary Glucose Calcium 9.0 mg/dL
[2022-02-13] MEDS: LACTATED RINGERS 1,000 ML 30 ML IV CONT (14:54)
--- NOTE | 2022-02-13 15:55 | P.OP_ITS ---
Procedure Note - Detailed Date of Procedure 02/13/22 Pre-op Diagnosis ACUTE APPENDICITIS Post-op Diagnosis Same Procedure Performed laparoscopic appendectomy Surgeon Christie Boyd MD Anesthesia General Indications 76 y/o F presenting to ED c acute appendicitis Findings acute appendicitis no evidence of perforation Description of Procedure The patient was taken to the operating room and placed in the supine position. After adequate induction of general anesthesia, the patient was prepped and draped in the normal sterile fashion. A time-out was then done to verify the patient's identity, as well as the procedure being performed. I began by making a 5 mm incision in the infraumbilical region, through this a Veress needle was placed in the peritoneal cavity. CO2 gas was then insufflated and after olivia quate pneumoperitoneum was achieved the Veress needle was removed. Then placed a 5 mm Optiview trocar under direct visualization into the peritoneal cavity. I then insufflated through this trocar site and the endoscope was placed into the trocar. Under direct visualization, placed 2 further 5 mm suprapubic port as well as an additional 12 mm port in the left lower abdomen. At this point identified the cecum, I retracted the cecum both medially and superiorly allowing me to expose the appendix. The appendix was noted to be very dilated and inflamed especially towards the tip. The appendix was noted to be very adherent to the right lateral sidewall as well as the ileum. I was able to bluntly dissect the appendix from these adhesions. I then was able to locate the base of the appendix with the cecum. I created a window with the [place] dissector between the appendix itself and the mesoappendix. I then transected the mesoappendix with a white vascular staple load. The Endo-DARRIN was then reloaded with a blue staple load and I transected the base of the appendix. Once the specimen was completely detached, an endo-pouch was placed into the 12 mm port site and the specimen was removed through the endo-pouch. The appendiceal specimen will be sent to pathology for further review. I then copiously irrigated the right lower quadrant. Hemostasis was noted at both staple lines no other pathology was seen in this area. I then moved the camera to the suprapubic port to check our its port of entry. No iatrogenic injury or other pathology was noted in the upper abdomen. I then closed the 12 mm port site with a Bayron code and 0 Vicryl suture under direct visualization. At this point, the abdomen was desufflated and all ports were removed. All port sites were closed with 4 Monocryl subcuticular suture. Dermabond was placed on all wounds. The patient tolerated the procedure well and was extubated in the operating room postop. She will be sent to the recovery room in stable condition. Estimated Blood Loss 10 Drains No Packing No Pathology Yes Complications No immediate complications Condition Stable Disposition PACU [facility] Billing Surgery - Charge Forward: Surgery Billing
[2022-02-13] MEDS: fentaNYL CITRATE INJ (*CRX) 100 MCG/2 ML VIAL 25 MCG IV PUSH ×4 (16:25→16:44)
[2022-02-13 16:38] LABS: Glucose Point of Care 154 mg/dl (65-105)
== END 2022-02-13 17:55 | disposition home or self-care (01) ==
LOC: ANHED 11:43 → ANHSURGERY 12:21
PROVIDERS: Emergency Provider Nurse Practitioner Family; PCP Internal Medicine; Visit Provider Surgery
PROC: 0DTJ4ZZ Resection of Appendix, Percutaneous Endoscopic Approach (ICD-10-PCS; CPT 44970; principal; 2022-02-13 15:30)
DX: K35.30 Acute appendicitis with localized peritonitis, without perforation or gangrene (principal); I12.9 Hypertensive chronic kidney disease with stage 1 through stage 4 chronic kidney disease, or unspecified chronic kidney disease; E78.5 Hyperlipidemia, unspecified; N18.1 Chronic kidney disease, stage 1; E11.22 Type 2 diabetes mellitus with diabetic chronic kidney disease; K21.9 Gastro-esophageal reflux disease without esophagitis; E55.9 Vitamin D deficiency, unspecified; Z79.84 Long term (current) use of oral hypoglycemic drugs
CPT/HCPCS: 44970; 36415; 74177; 80053; 82948; 83690; 85025; 85610; 85730; 87636; 88304; 96361; 96365; 99285; J0330; J1100; J1335; J2405; J2704; J3010; J7030; J7120; Q9967

== ENCOUNTER 2022-03-27 09:51 | Outpatient (CLI) | payer MEDICARE, BC, SELFPAY ==
--- NOTE | 2022-03-27 10:10 | ECG_ITS ---
Measurements Intervals [place] Rate: 78 P: 59 MD: 253 QRS: 15 QRSD: 80 T: 61 QT: 369 QTc: 422 Interpretive Statements SINUS RHYTHM WITH FIRST DEGREE AV BLOCK BASELINE ARTIFACT- I, II, III, AVR, AVL, AVF ABNORMAL ECG NO PREVIOUS ECG AVAILABLE FOR COMPARISON Electronically Signed On 03-27-2022 10:28:33 [employer]IN ROLLING MACHINE OPERATOR by Michael Galan D.O.
== END 2022-03-27 09:52 | disposition home or self-care (01) ==
LOC: ANHSURGERY 09:54
PROVIDERS: PCP Internal Medicine; Visit Provider Surgery
DX: K43.2 Incisional hernia without obstruction or gangrene (principal); E11.9 Type 2 diabetes mellitus without complications; Z01.818 Encounter for other preprocedural examination; I44.0 Atrioventricular block, first degree
CPT/HCPCS: 36415; 86850; 86900; 86901; 93005

== ENCOUNTER 2022-04-02 01:00 | Day surgery (SDC) | payer MEDICARE, BC, SELFPAY ==
--- NOTE | 2022-03-24 15:48 | PC.NURSE ---
Report to the Outpatient Waiting Room, entrance under the green pavilion located off [facility], at time __0600 on date _04/02/22 . Planned Procedure Time: __30 . Time changes happen often and if your time is changed the preop area will call you the afternoon before. - You and your visitor will be asked to self-screen and do not enter if you have any COVID symptoms. - Only one visitor is requested with a max of two and NO children visitors are allowed at this time. - The patient visitor may be requested to leave or wait in car when not with patient due to distancing restrictions. - A mask is optional within the hospital. Patients may have clear liquids (water, carbonated beverages, clear teas, apple juice) until 3 hours prior to surgery with a maximum of 20 ounces. - No food from midnight until time of surgery - Infants may have breast milk until 4 hours before surgery, formula 6 hours prior to surgery. - Children will be allowed to drink immediately following surgery. If applicable, please bring a bottle or sippy cup to assist with drinking. Juice, water, soda, and popsicles are readily available. For infants on formula, please bring formula the day of surgery. Pacifiers are allowed. Take the following medications with a SIP of water the morning of surgery: __VERAPRAMIL Medications to discontinue per physician __ALL VITAMINS AND SUPPLEMENTS 3 DAYS PRE OP LAST DOSE 03/29/22 HIBICLENS SHOWER MORNING OF SURGERY Please no make-up, nail latvian, hairspray, perfume, deodorant, or body powder the day of surgery. No jewelry (including any body piercings) or valuables the day of surgery, leave them at home. Please take a shower or bath the night before, or the morning of, surgery with an antibacterial soap. Wear comfortable, loose fitting clothing. Children are encouraged to wear pajamas. - Jewelry must be removed prior to entering the operating room. Rings and piercings that are not removed may be cut off. - The hospital will not accept responsibility for valuables. - Please leave all valuables, including medications, at home the day of surgery. If you are going home after surgery, a licensed driver starting gate must drive you home. - NO public transportation without another adult if you receive anesthesia. - We recommend that an adult stay with you for 24 hours following discharge. - We also recommend that you do not drive, make important decision, drink alcoholic beverages, or take any drugs that were not prescribed by your health care provider for at least 24 hours after your discharge time. Follow any additional instructions given to you from your surgeon. If you or anyone in your household have experienced Covid symptoms in the past week, please notify your surgeon or the nurse liaison at the phone number below for possible testing. Telephone instructions given to _PATIENT and asked if any additional questions and then verbalized understanding. Patient advised to call surgeon office or pre surgery nurse liaison [phone] if any additional questions.
[2022-03-24 16:01] VITALS: BMI 27.4
[2022-04-02] VITALS (10 sets, daily range): BP systolic 117–131; BP diastolic 58–66; PULSE 70–90; RESP 12–16; TEMP 36.4–36.8; O2SAT 96–100
[2022-04-02] MEDS: ACETAMINOPHEN 500 MG TABLET 1000 MG PO (06:35)
--- NOTE | 2022-04-02 06:48 | WPDANESEPPF ---
Anes - Initial Pre Proc Eval Procedure: Operation Date: 04/02/22 07:30 Proposed Procedures p Laparoscopic Recurrent Incisional Hernia Repair with Mesh Davinci Assisted, Removal of Old Mesh - James Shore DO Date/Time: 04/02/22 06:48 Surgeon: James Shore DO Pre Op Diagnosis: recurrent incisional hernia Patient Data Age: 76 Gender: F Height: 1.68 m Weight: 77.2 kg Allergies Allergy/AdvReac Type Severity Reaction Status Date / Time HERB Inhibitors Allergy Unknown Cough, Verified 04/02/22 06:15 RETAIN K+ hydralazine Allergy Unknown RASH, Verified 04/02/22 06:15 HANDS/FEET SWELLING Penicillins Allergy Unknown Unknown-POSSIBLE Verified 04/02/22 06:15 RASH Home Medications Medication Instructions Recorded Confirmed Type coenzyme Q10 100 mg capsule 400 mg PO DAILY 01/27/19 04/02/22 History (CoQ-10) magnesium 250 mg tablet 500 mg PO DAILY 01/27/19 04/02/22 History mecobalamin (vitamin B12) 1,000 1,000 mcg sublingual DAILY 01/27/19 04/02/22 History mcg disintegrating tablet,sublingual omega-3 fatty acids 1,000 mg 2,000 mg PO BID 02/18/19 04/02/22 History capsule (Fish Oil Concentrate) cholecalciferol (vitamin D3) 25 25 mcg PO DAILY 02/01/20 04/02/22 History mcg (1,000 unit) tablet verapamil 180 mg tablet,extended See Rx Instructions .Route 05/27/21 04/02/22 Rx release .COMPLEX #90 tabs famotidine 40 mg tablet See Rx Instructions .Route 06/10/21 04/02/22 Rx .COMPLEX #90 tabs rosuvastatin 20 mg tablet See Rx Instructions .Route 06/10/21 04/02/22 Rx .COMPLEX #90 tabs metronidazole 1 % topical gel 1 applic topical TID #60 grams 07/29/21 04/02/22 Rx (Metrogel) folic acid 1 mg tablet See Rx Instructions .Route 12/09/21 04/02/22 Rx .COMPLEX #90 tabs fluticasone propionate 50 2 spray intranasal DAILY 12/16/21 04/02/22 History mcg/actuation nasal spray,suspension sitagliptin phosphate 100 mg See Rx Instructions .Route 01/28/22 04/02/22 Rx tablet (Januvia) .COMPLEX #90 tabs hydrocodone 5 mg-acetaminophen 325 1 tablet PO Q6H PRN pain #20 tabs 02/13/22 03/24/22 Rx mg tablet ascorbic acid (vitamin C) 500 mg 500 mg PO DAILY 03/24/22 04/02/22 History chewable tablet zinc 50 mg capsule 50 mg PO DAILY 03/24/22 04/02/22 History Patient hx anesthesia problems: none Family hx anesthesia problems: none Results Review: All pre-operative results and documents have been reviewed as part of the pre-operative evaluation. 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 Diverticulosis DJD (degenerative joint disease), multiple sites DM type 2 (diabetes mellitus, type 2) Elevated homocysteine Elevated liver function tests Elevated parathyroid hormone GERD (gastroesophageal reflux disease) Hypercalcemia Hyperlipidemia Incisional hernia without obstruction or gangrene Left knee pain Microalbuminuria due to type 2 diabetes mellitus Parathyroid adenoma Post-menopausal SK (seborrheic keratosis) Skin tag Thrombophlebitis of superficial veins of right lower extremity Varicose veins of both lower extremities Vitamin D deficiency Surgical History Surgical History (Updated 02/26/22 @ 10:02 by Preeti Ortega) H/O hernia repair 2012 -repair of epigastric incisional hernia with mesh H/O removal of cyst 2013 H/O: hysterectomy 1990 -total abdominal hysterectomy with bilateral salpingo-oophorectomy History of laparoscopic appendectomy Performed by Dr. Boyd on 02/13/22. History of laparoscopic cholecystectomy S/P parathyroidectomy Family History Family History Father Hypertension Family history of heart disease in male famil
[2022-04-02] MEDS: LACTATED RINGERS 1,000 ML 30 ML IV CONT ×2 (06:50→09:46)
[2022-04-02 06:57] LABS: Glucose Point of Care 109 mg/dl (65-105)
[2022-04-02] MEDS: KETOROLAC 15 MG/ML VIAL (*BKC) IV PUSH (07:07)
--- NOTE | 2022-04-02 07:15 | WPDHPUPDATE1 ---
History and Physical Update Update Date/Time: 04/02/22 07:15 History and Physical has been reviewed, including an updated exam of the patient. There are NO changes in the patient's condition. Risks, benefits, and alternatives have been discussed and questions answered. Patient agrees to proceed with procedure.
--- NOTE | 2022-04-02 07:16 | PM.IMHP ---
H&P: HPI History of Present Illness Date/Time: 04/02/22 07:16 Chief Complaint: Incisional hernia Narrative: 76 yo woman presents for recurrent incisional hernia repair. She had appendectomy in February but denies any other changes since last seen in office. Review of Systems Review of Systems: All systems reviewed & are unremarkable except as noted in HPI and below Constitutional: Constitutional: Denies chills, Denies fever(s), Denies headache(s) and Denies weight loss Eyes: Eyes: Denies change in vision ENT: Denies dizziness, Denies headache(s), Denies neck mass and Denies throat swelling Cardiovascular: Cardiovascular: Denies chest pain, Denies lightheadedness and Denies dyspnea Respiratory: Respiratory: Denies cough, Denies dyspnea and Denies wheezing Gastrointestinal: Gastrointestinal: Denies abdominal pain, Denies change in bowel habits, Denies nausea and Denies vomiting Genitourinary: Genitourinary: Denies hematuria and Denies dysuria Musculoskeletal: Musculoskeletal: Reports as per HPI Integumentary/Breasts: Skin/Breast: Reports as per HPI Neurologic: Denies dizziness and Denies headache(s) Allergic/Immunologic: Allergic/Immunologic: Denies throat swelling and Denies wheezing [facility] Past Medical History Medical History (Updated 02/26/22 @ 10:40 by Jocelynn Feliciano, [facility]) Allergy to HERB inhibitors Allergy to angiotensin receptor blockers (ARB) Benign essential hypertension Bilateral cataracts BMI 27.0-27.9,adult Chronic low back pain 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 Diverticulosis DJD (degenerative joint disease), multiple sites DM type 2 (diabetes mellitus, type 2) Elevated homocysteine Elevated liver function tests Elevated parathyroid hormone GERD (gastroesophageal reflux disease) Hypercalcemia Hyperlipidemia Incisional hernia without obstruction or gangrene Left knee pain Microalbuminuria due to type 2 diabetes mellitus Parathyroid adenoma Post-menopausal SK (seborrheic keratosis) Skin tag Thrombophlebitis of superficial veins of right lower extremity Varicose veins of both lower extremities Vitamin D deficiency Surgical History Surgical History (Updated 02/26/22 @ 10:02 by Preeti Ortega) H/O hernia repair 2012 -repair of epigastric incisional hernia with mesh H/O removal of cyst 2013 H/O: hysterectomy 1990 -total abdominal hysterectomy with bilateral salpingo-oophorectomy History of laparoscopic appendectomy Performed by Dr. Boyd on 02/13/22. History of laparoscopic cholecystectomy S/P parathyroidectomy Family History Family History Father Hypertension Family history of heart disease in male family member before age 55 Cerebrovascular accident Mother Hypertension Family history of malignant neoplasm of breast in first degree relative Cerebrovascular accident Sibling Hypertension Family history of gastrointestinal disorder Other Family history of cardiovascular disease Social History Social History Smoking status: Never smoker Second hand tobacco smoke exposure: No Alcohol intake: never Substance use: never Substance use type: does not use Living arrangements: with family Gender identity (if verbalized by the patient): Female Sexual Orientation (if Verbalized by the Patient): Straight or Heterosexual Spiritual care concerns: No Meds Home Medications and Allergies Home Medications Medication Instructions Recorded Confirmed Type coenzyme Q10 100 mg capsule 400 mg PO DAILY 01/27/19 04/02/22 History (CoQ-10) magnesium 250 mg tablet 500 mg PO DAILY 01/27/19 04/02/22 History mecobalamin (vitamin B12) 1,000 1,000 mcg sublingual DAILY 01/27/19 04/02/22 History mcg disintegrating tablet,sublingual omega-3 fatty acids 1,000 mg 2,000 mg PO BID 02/18/19 04/02/22 History capsule (Fish Oil Concentrate) chol
[2022-04-02] MEDS: ceFAZolin 2 GM/D5W 50 ML 2 GM/50 ML BAG IVPB (07:24)
--- NOTE | 2022-04-02 09:35 | W.PM.PROC2 ---
Procedure Note - Detailed Date of Procedure 04/02/22 Pre-op Diagnosis recurrent incisional hernia Post-op Diagnosis Same (3.2 cm Recurrent Incisional Hernia) Procedure Performed 1. Laparoscopic 3.2cm Recurrent Incisional Hernia Repair with Mesh, da Sharif assisted 2. Removal of mesh foreign body Surgeon James Shore DO Anesthesia General and Local (Exparel) Indications This is a 76-year-old who presented with a recurrent bulge in her upper abdomen. She had prior history of laparoscopic cholecystectomy about 25 years ago. She was then found to have an incisional hernia in her upper abdomen and underwent a repair with mesh in 2012. Over the past couple years she has noticed a recurrent bulge in this area that is could larger and slightly more painful. She was found to have a recurrent incisional hernia exam. Discussions were made with the patient about treatment options and decision was made to proceed with robotic assisted laparoscopic recurrent incisional hernia repair with mesh and removal of old mesh foreign body. Findings Laparoscopic recurrent incisional hernia repair was performed. The patient was found to have a 3.2 cm recurrent incisional hernia in the upper abdomen. This appeared to be about 5 cm inferior to the xiphoid. A robotic transabdominal preperitoneal approach was utilized. The previous mesh was identified protruding up into the hernia defect. This was removed and sent to the lab for pathology. The hernia was then closed using 0 Stratafix running absorbable suture. A 10 cm x [address] mesh was then placed within the preperitoneal pocket and secured to the abdominal wall using 3-0 Vicryl simple interrupted sutures. The peritoneum was then closed over mesh using 3 V lock running absorbable suture. Description of Procedure Procedure as well as risks, benefits, and alternatives were discussed with the patient. Written consent was obtained and placed in chart prior to procedure. Patient was brought back to surgical suite. She was placed supine on operating table. Time-out was done to confirm patient and procedure. She was then intubated by the anesthesia department. The bed was flexed slightly to extend the space between her costal margin and iliac crest. Her abdomen was prepped and draped in sterile fashion using chlorhexidine prep. A 5 millimeter incision was made in the left lower quadrant, and a 5 millimeter Optiview trocar was advanced through the abdominal layers under direct visualization. Once inside the abdominal cavity, carbon dioxide insufflation was used to create a pneumoperitoneum. Her abdomen was inspected. An 8 millimeter incision was made in the right lower quadrant, and an 8 millimeter robotic trocar was placed under direct visualization. Another 8 millimeter incision was made inferior to the umbilicus, and an 8 millimeter robotic trocar was placed under direct visualization. Exparel was infiltrated along the lateral abdominal rod to perform a transversus abdominis plane block bilaterally. The 5 millimeter port was removed, the incision was extended to 12 millimeters, and a 12 millimeter air seal port was placed under direct visualization. A Bayron-Wade cone was also used to place an 0-Vicryl simple interrupted suture at this trocar site. The robotic arms were brought up to the patient's bedside and secured to the ports. The camera and instruments were inserted, and I then moved over to the robotic console and took control of the camera and instruments. After careful thorough inspection of the abdominal cavity, I began my dissection at the hernia. A preperitoneal pocket was created in the supraumbilical region and this was extended cephalad towards the hernia defect using scissors with electrocautery. The hernia sac was then reduced and the preperitoneal plane was extended wide enough around the hernia defect to allow for mesh placement. The old mesh was carefully excised from around the right l
[2022-04-02 10:03] LABS: Glucose Point of Care 140 mg/dl (65-105)
[2022-04-02] MEDS: fentaNYL CITRATE INJ (*CRX) 100 MCG/2 ML VIAL 25 MCG IV PUSH ×4 (10:20→10:35)
[2022-04-02] MEDS: ONDANSETRON INJ 4 MG/2 ML VIAL IV PUSH (10:58)
[2022-04-02] MEDS: oxyCODONE HCL (*CRX) 5 MG TAB IR PO (11:31)
== END 2022-04-02 13:18 | disposition home or self-care (01) ==
PROVIDERS: PCP Internal Medicine; Visit Provider Surgery
PROC: (CPT 49615; principal; 2022-04-02 07:30)
DX: K43.2 Incisional hernia without obstruction or gangrene (principal); I12.9 Hypertensive chronic kidney disease with stage 1 through stage 4 chronic kidney disease, or unspecified chronic kidney disease; E11.22 Type 2 diabetes mellitus with diabetic chronic kidney disease; N18.1 Chronic kidney disease, stage 1; K21.9 Gastro-esophageal reflux disease without esophagitis; E78.5 Hyperlipidemia, unspecified; E55.9 Vitamin D deficiency, unspecified; Z79.84 Long term (current) use of oral hypoglycemic drugs
CPT/HCPCS: 49615; 49623; S2900; 82948; 88300; A9270; C1781; C9290; J0690; J1100; J1170; J1885; J2405; J2704; J2710; J3010; J7030; J7120

== ENCOUNTER → 2022-09-26 10:11 | Outpatient (CLI) | payer MEDICARE, BC, SELFPAY ==
--- NOTE | ~2022-09-26 | DEXA_ITS ---
Bone Density Report Name: TRICAI ROTHMAN Age: 76 Sex: Female Ethnicity: White Date of : 1945 Indication: postmenopausal; screening for osteoporosis; height loss; hysterectomy; Referring Provider: CHIRAG HULL Study: Bone densitometry was performed. Exam Date: September 26, 2022 Accession number: [id number] Bone Density: Region BMD T-score Z-score Classification AP Spine (L1-L4) 1.012 -0.3 2.2 Normal Femoral Neck (Left) 0.735 -1.0 1.2 Normal Total Hip (Left) 0.886 -0.5 1.5 Normal Femoral Neck (Right) 0.727 -1.1 1.1 Osteopenia Total Hip (Right) 0.867 -0.6 1.3 Normal Total Hip Mean 0.877 -0.6 1.4 Normal World Health Organization criteria for BMD impression classify patients as: Normal (T-score at or above -1.0), Osteopenia (T-score between -1.0 and -2.5), or Osteoporosis (T-score at or below -2.5). 10-year Fracture Risk(1): Major Osteoporotic Fracture 11% Hip Fracture 2.0% Reported Risk Factors: [place] (), Neck BMD=0.727, BMI=28.3 (1) FRAX(R) Version 3.08. Fracture probability calculated for an untreated patient. Fracture probability may be lower if the patient has received treatment. Previous Exams: Region Exam Age BMD T-score BMD Change BMD Change Date g/cm2 vs Baseline vs Previous AP Spine(L1-L4) 09/26/2022 76 1.012 -0.3 -0.141 -0.159* 12/26/2011 66 1.170 1.1 0.018 0.007 10/10/2009 63 1.163 1.1 0.011 -0.002 02/22/2007 61 1.165 1.1 0.012 0.012 09/27/2004 58 1.153 1.0 Total Hip(Left) 09/26/2022 76 0.886 -0.5 -0.127 -0.114* 12/26/2011 66 1.000 0.5 -0.013 -0.030* 10/10/2009 63 1.030 0.7 0.016 -0.032* 02/22/2007 61 1.062 1.0 0.048 0.048 09/27/2004 58 1.014 0.6 Total Hip(Right) 09/26/2022 76 0.867 -0.6 -0.194 -0.121* 12/26/2011 66 0.988 0.4 -0.073 -0.003 10/10/2009 63 0.991 0.4 -0.070 -0.032* 02/22/2007 61 1.023 0.7 -0.038 -0.038 09/27/2004 58 1.061 1.0 *Denotes significance at 95% confidence level, LSC for AP Spine = 0.022 g/cm2, LSC for Total Hip = 0.027 g/cm2 Clinical Information Provided by Patient: Has used the following medications: Vitamin D Has the following medical conditions: Hysterectomy Patient maximum height was 66.5 Menopause Age: 45 No regular weight bearing exe
--- NOTE | ~2022-09-26 | MM_ITS ---
EXAMINATION: MM screening cindy BI w honey HISTORY: Screening TECHNIQUE: Craniocaudal and mediolateral oblique 3-D tomosynthesis images were obtained and synthetic 2-D images were generated. CAD analysis was submitted and interpreted. COMPARISON: Comparison to multiple prior studies sequentially, with oldest reviewed study dated 10/2013. BREAST PARENCHYMAL COMPOSITION: There are scattered areas of fibroglandular density. FINDINGS: Stable benign-appearing right breast mass. There is no evidence of suspicious mass, calcifi cation, or architectural distortion to suggest malignancy in either breast. There has been no suspici ous interval change. IMPRESSION: 1. No mammographic evidence of malignancy. 2. Recommend routine screening mammography in one year. BI-RADS Category 2: Benign finding(s). Reviewed, dictated and finalized at location A.
== END ==
PROVIDERS: PCP Internal Medicine; Visit Provider Internal Medicine
DX: Z12.31 Encounter for screening mammogram for malignant neoplasm of breast (principal); Z78.0 Asymptomatic menopausal state; M85.851 Other specified disorders of bone density and structure, right thigh
CPT/HCPCS: 77063; 77067; 77080

== ENCOUNTER 2023-08-06 08:00 | Outpatient (CLI) | payer MEDICARE, BC, SELFPAY ==
--- NOTE | ~2023-08-06 | XR_ITS ---
EXAMINATION: XR UGIAC wo kub DATE: 08/06/2023 09:03 INDICATION: Epigastric abdominal pain. Nausea. TECHNIQUE: The patient drank thick barium, gas-producing crystals, and thin barium. Fluoroscopy of th e esophagus, stomach, and proximal small bowel was performed. Fluoroscopy exposure time was 0.9 minut es. The total number of images was 274. Total dose-area product was 2.65 Gy-cm^2. COMPARISON: None. FINDINGS: There is no mass or stricture of the esophagus. There is decreased primary and secondary es ophageal peristalsis. No abnormal tertiary waves. There is no hiatal hernia. There was gastroesophage al reflux with provocative maneuvers. The stomach and proximal small bowel show normal folding patter ns. Surgical clips in the right upper quadrant are likely from cholecystectomy. IMPRESSION: 1. Mild esophageal dysmotility. 2. Gastroesophageal reflux. Reviewed, dictated and finalized at location A.
--- NOTE | ~2023-08-06 | US_ITS ---
Abdominal Sonogram: Real-time sonographic imaging of the abdomen was performed. Clinical History: Nausea Findings: The liver appears normal with no evidence of mass lesion or bile duct dilatation. Main por myriam vein demonstrates normal direction of flow. The spleen is normal in size without evidence of foca l lesion. The gallbladder is absent, compatible prior cholecystic and. The common bile duct measures 3 mm. The visualized pancreas, aorta, and IVC are unremarkable. The right kidney measures 10.9 cm in length and the left kidney measures 11.5 cm. There is no hydronephrosis or renal calculus. Impression: Status post cholecystectomy. No other significant findings. Reviewed, dictated and finalized at location . Impression: Status post cholecystectomy. No other significant findings.
== END 2023-08-06 08:01 | disposition home or self-care (01) ==
LOC: ANHIMG 08:06
PROVIDERS: PCP Internal Medicine; Visit Provider Internal Medicine
DX: K22.4 Dyskinesia of esophagus (principal); K21.9 Gastro-esophageal reflux disease without esophagitis; Z90.49 Acquired absence of other specified parts of digestive tract
CPT/HCPCS: 74246; 76700

== ENCOUNTER 2023-11-10 12:30 | Outpatient (CLI) | payer MEDICARE, BC, SELFPAY ==
--- NOTE | ~2023-11-10 | MM_ITS ---
EXAMINATION: MM screening cindy BI w honey HISTORY: Screening TECHNIQUE: Craniocaudal and mediolateral oblique 3-D tomosynthesis images were obtained and synthetic 2-D images were generated. CAD analysis was submitted and interpreted. COMPARISON: Comparison to multiple prior studies sequentially, with oldest reviewed study dated 10/2013. BREAST PARENCHYMAL COMPOSITION: Not dense: There are scattered areas of fibroglandular density. FINDINGS: Bilateral nodular asymmetries are stable. There is no evidence of suspicious mass, calcific ation, or architectural distortion to suggest malignancy in either breast. There has been no suspicio us interval change. IMPRESSION: 1. No mammographic evidence of malignancy. 2. Recommend routine screening mammography in one year. BI-RADS Category 1: Negative Reviewed, dictated and finalized at location B.
== END 2023-11-10 12:31 | disposition home or self-care (01) ==
LOC: MICIMG 12:33
PROVIDERS: PCP Internal Medicine; Visit Provider Internal Medicine
DX: Z12.31 Encounter for screening mammogram for malignant neoplasm of breast (principal)
CPT/HCPCS: 77063; 77067

== ENCOUNTER 2025-02-22 13:46 | Outpatient (CLI) | payer MEDICARE, BC, SELFPAY ==
--- NOTE | ~2025-02-22 | MM_ITS ---
EXAMINATION: MM screening cindy BI w honey HISTORY: Screening TECHNIQUE: Craniocaudal and mediolateral oblique 3-D tomosynthesis images were obtained and synthetic 2-D images were generated. CAD analysis was submitted and interpreted. COMPARISON: Comparison to multiple prior studies sequentially, with oldest reviewed study dated , 09/17/2017 BREAST PARENCHYMAL COMPOSITION: Not Dense: There are scattered areas of fibroglandular density. FINDINGS: There is no evidence of suspicious mass, calcification, or architectural distortion to suggest malignancy in either breast. IMPRESSION: 1. No mammographic evidence of malignancy. 2. Recommend routine screening mammography in one year. BI-RADS Category 1: Negative Reviewed, dictated and finalized at location A. [employer]
== END 2025-02-22 13:47 | disposition home or self-care (01) ==
LOC: MICIMG 13:47
PROVIDERS: PCP Internal Medicine; Visit Provider Internal Medicine
DX: Z12.31 Encounter for screening mammogram for malignant neoplasm of breast (principal)
CPT/HCPCS: 77063; 77067